=== PATIENT | male | born 1950 | race Caucasian/White ===

== ENCOUNTER → 2022-09-18 | Outpatient (CLI) | payer OTHER | END | disposition home or self-care (01) | LOC: SHCH 07:51 | PROVIDERS: ATTEND Student in an Organized Health Care Education/Training Program | DX: I49.3 Ventricular premature depolarization (principal); E78.5 Hyperlipidemia, unspecified; I34.0 Nonrheumatic mitral (valve) insufficiency | CPT/HCPCS: 93306 ==